=== PATIENT | male | born 1950 | race Caucasian/White ===

== ENCOUNTER 2016-05-31 06:05 | Day surgery (SDC) | payer BC ==
[~2016-05-31] VITALS: Ht 185.4 cm; Wt 82.4 kg
[~2016-05-31 06:05] MED LIST: ASPI-557 PO; ENAL1TAB PO
[2016-05-31 06:07] VITALS: BP 128/76; PULSE 74; RESP 16; TEMP 97.7; O2SAT 94
--- OUTSIDE RECORDS SUMMARY | 2016-05-31 06:09 | XMS REPORT | Continuity of Care Document ---
Author Author [facility] Organization [facility] Address Unknown Phone Unavailable Allergies Medications Problems Procedures Results Encounters ACCT No. Visit Date/Time Discharge Status Pt. Type Provider Facility Loc./Unit Complaint [id number] 04/26/2013 18:06:00 04/26/2013 23 :59:59 CLS Outpatient
--- OUTSIDE RECORDS SUMMARY | 2016-05-31 06:09 | XMS REPORT | Continuity of Care Document ---
Author Author Bridget Tam RN Ambulatory Address [address] [place] [id number] Phone Unavailable Payers Payer name Insurance type Covered green party ID Authorization(s) Unknown Problems Condition Effective Dates (start - stop) Clinical Status Lumbago - *Acute Family History Family Member Diagnosis Age At Onset Status Unknown Social History Social History Element Description Quantity Unknown Allergies, Adverse Reactions, Alerts Substance Reaction Severity Status Unknown Medications Medication Instructions Dosage Effective Dates (start - stop) Status Flexeril 5 mg tablet take 1 tablet (5MG) by oral route 3 times every day 5 MG - No Longer Active Girard 5 mg-325 mg tablet take 1 tablet by oral route every 6 hours as needed for pain 0 - No Longer Active Mobic 7.5 mg tablet take 1 tablet (7.5MG) by oral route every day 7.5 MG - No Longer Active Immunizations Vaccine Date Status Comments Unknown Results Test Name Date and Time Measure Units Reference Range Abnormal Flag Comments Unknown Vital Signs Date / Time: Height Weight Pulse Rate Blood Pressure Temperature /18:09:00 73.00 in 86 /min 135/84 mm[Hg] 98.0 F Procedures Procedure Date KETOROLAC TROMETHAMINE INJ THER/PROPH/DIAG INJ, SC/IM Encounters Encounter Location Date Patient Visit [facility] Care Advance Directives Directive Effective Date Unknown
[2016-05-31 06:36] VITALS: Ht 185.4 cm; Wt 82.4 kg
[2016-05-31] MEDS ORDERED: PROPOFOL 500mg 50 ML IV ONE ×2 (06:49→07:48)
[2016-05-31] MEDS ORDERED: LR 1,000 ML IV SCH (07:00)
[2016-05-31] MEDS ORDERED: LIDOCAINE 1% (10mg/ml) 2ml SDV INJ ONE (07:00)
--- NOTE | 2016-05-31 07:10 | ANESPREOP ---
Anesthesia Record Date and Time DATE: 05/31/16 TIME: 07:01 Pre-Op Diagnosis personal history colon polyp Proposed Surgical Procedure COLONOSCOPY NPO since: 2199 Allergies: Coded Allergies: No Known Drug Allergies (Verified Allergy, Unknown, 05/31/16) Ht/Wt/BMI Height: 6 ' 1.00 " Weight: 82.400 kg BMI: 24.0 kg/m2 Vital Signs Date Time Temp Pulse Resp B/P Pulse Ox O2 Delivery O2 Flow Rate FiO2 05/31/16 06:07 97.7 74 16 128/76 94 Room Air Medications Inpatient Medications Current Medications Medications (Trade) Dose Ordered Sig/Giuliano Start Time Stop Time Status Last Admin Dose Admin Lactated Ringer's (Lactated Ringers) 1,000 ml @ 50 mls/hr Q20H 05/31/16 07:00 05/31/16 06:50 50 MLS/HR Aspirin (Aspir 81) 81 Mg Tablet.dr, 1 TAB PO DAILY, (Reported) Last Taken: on 05/30/16 0700 Enalapril/Hydrochlorothiazide (Enalapril-Hctz 10-25 Mg Tablet) 1 Tab Tablet, 1 TAB PO DAILY, (Reported) Last Taken: on 05/30/16 0800 Currently on Beta Razia: No Medical/Surgical History Anesthesia PMH: Reports: *Hypertension, COPD, Cancer (MALIGNANT MELANOMA FACE, EAR), Hyperlipidemia, Denies: *Angina, *Diabetes, *Dyspnea, *[place], Anesthesia Reactions (NO AIRWAY ISSUES), Arthritis, Asthma, CHF, CVA/Stroke/TIA, Clotting Problems, Deep Vein Thrombosis, Glaucoma, Hepatitis, Hiatal Hernia, Malignant Hyperthermia, Pneumonia, Reflux, Renal Disease, Seizures, Sleep Apnea, Thyroid Disease, Tuberculosis Smoking Status: Current every day smoker Has pt. smoked today?: No # of Packs per Day: 1 # of Years: 40 Use Chewing Tobacco?: No Second Hand Exposure: No Substance Use Type: does not use Alcohol Intake: none Past Surgical History Orthopedic Surgeries: Yes - L1-2 DISCECTOMY 2000, R ARM PINNING Abdominal Surgeries: No Genitourinary Surgeries: No Cardiac Surgeries: No Endocrine Surgeries: No Reproductive Surgeries: No Neurological Surgeries: No Ear Surgeries: No Nose Surgeries: No Throat Surgeries: Yes - TONSILLECTOMY Other Surgeries: Yes - MOH'S PROCEDURE,COLONOSCOPY,WISDOM TEETH Anesthesia Adverse Reactions: FOUND none Family Hx of Anesthesia Advers: none Hx of Motion Sickness: No Pertinent Findings EKG Rhythm: Sinus Rhythm Physical Exam Respiratory: Wheezing Cardiovascular: FOUND Regular rate, rhythm, FOUND No murmur Airway Assessment Mallampati Score: II TMD: 3 Fingerbreadths Neck Extension: Good Teeth: Chipped Teeth/Crowns Overall Assessment: No Airway Concerns ASA: 3 Plan Anesthesia Plan: TIVA Discussion Discussed risks/options/alternatives of anesthesia and questions answered. Patient consents. Nursing pain assessment noted. Attestation Statement Prior to the delivery of any anesthetic medication, I examined the patient, developed the plan, obtained the patient's consent and discussed the risk and benefits of the procedure with the patient/guardian. DALTON QUINTERO CRNA May 31, 2016 07:03
[2016-05-31] MEDS ORDERED: PROPOFOL 200mg 20 ML IV ONE ×2 (08:36→08:54)
[2016-05-31 09:07] VITALS: BP 119/63; PULSE 68; RESP 18; TEMP 97.6; O2SAT 98
--- NOTE | 2016-05-31 09:12 | ANESPO ---
Post-Op Note Date 05/31/16 Time: 09:13 Status Pt Participated in Evaluation: Pt participated in person Vital Signs Date Time Temp Pulse Resp B/P Pulse Ox O2 Delivery O2 Flow Rate FiO2 05/31/16 09:11 Room Air 05/31/16 06:07 97.7 74 16 128/76 94 Respiratory Function: Airway patent, Regular respirations Cardiovascular Function: Regular pulse Mental Status: Alert/oriented Pain Level Intensity: 0 Unable to Assess Pain Due To: Pt Sleeping Hydration: Taking po fluids Complications during Recovery None apparent Follow-Up Instructions Instructions Per Surgeon DALTON QUINTERO CRNA May 31, 2016 09:12
[2016-05-31 09:20] VITALS: BP 95/59; PULSE 60; RESP 24; O2SAT 98
[2016-05-31 09:35] VITALS: BP 116/69; PULSE 54; RESP 22; O2SAT 91
--- NOTE | 2016-05-31 09:42 | GSPOSTPROC ---
Immediate Operative Note DATE: 05/31/16 TIME: 09:41 Postop Diagnosis: multiple colon polyps Surgical Procedure: C-scope w/Polypectomy Surgeon: Tosin ASA: 3 MARCUS MCDONALD MD May 31, 2016 09:42
--- NOTE | 2016-06-01 11:22 | OPNOTEF ---
DATE OF OPERATION 05/31/2016 SURGEON Checo Leahy MD PREOPERATIVE DIAGNOSIS Personal history of adenomatous colon polyps. POSTOPERATIVE DIAGNOSES 1. 1-cm sessile polyp of the ascending colon. 2. 0.5-cm sessile polyps of the transverse colon x4. 3. 0.7-cm sessile polyp of the descending colon. 4. 0.5-cm sessile polyp of the sigmoid colon at 35 cm. 5. 0.7-cm sessile polyp of the sigmoid colon at 30 cm. 6. 0.5-cm sessile polyp of the distal rectum. PROCEDURE Colonoscopy with hot snare polypectomy x3 and hot biopsy forceps polypectomy x6. ANESTHESIA TIVA. ASA CLASS 3 INDICATIONS The patient is a 65-year-old male who had previously had adenomatous colon polyps removed on prior endoscopies with a total of eight tubular adenomas. He had one advanced adenoma that was 1.5 cm in diameter on his prior procedure that was done on 05/31/2013. A repeat was recommended to him. FINDINGS There were numerous sessile polyps throughout the colon with dimensions as above. All of the polyps were able to be removed. No other significant abnormalities were seen. DESCRIPTION OF PROCEDURE After informed consent was obtained, the patient was taken to the endoscopy suite and placed in the left lateral decubitus position. IV anesthesia was administered by the anesthesia team. A digital rectal exam was performed and was normal. The patient had received a MiraLAX/Dulcolax bowel prep the day prior. Olympus video colonoscope with an amplify device was inserted. A small polyp was noted in the distal rectum, and this was grasped with hot biopsy forceps. The mucosa was tented prior to application of cautery. Once the base of the polyp was destroyed, the polyp was removed and was sent to Pathology. The scope was then retroflexed to examine the distal rectum. It was returned to a neutral position and was advanced to the level of the cecum without difficulty. The bowel prep was very good with minimal residual liquid contents of the colon that were able to be removed via the colonoscope. The cecum was identified by the appendiceal orifice and ileocecal valve. During scope withdrawal, a sessile polyp was noted on a fold of the ascending colon. This was encircled with a rotating hot polypectomy snare. The snare was tightened around the base of the polyp and the mucosa was tented. Bursts of cautery were used to resect the polyp. The polyp itself was then retrieved by grasping the specimen with hot biopsy forceps and withdrawing the specimen through the colonoscope. The site was inspected and was found to be hemostatic. There were possible edges of the polyp that were still at the polypectomy sites, so these were grasped with the hot biopsy forceps and cautery was applied to the surrounding tissue. These extra fragments grasped with a biopsy forceps were also sent to Pathology. The scope was withdrawn to the distal transverse colon where multiple small polyps were noted within a short region of the colon. These four polyps were removed with a hot biopsy forceps polypectomy technique. The scope was withdrawn to the descending colon and a slightly larger sessile polyp was encountered. It was encircled with the polypectomy snare and was removed with a hot snare polypectomy technique. It was also grasped with biopsy forceps and retrieved via the colonoscope. The scope was withdrawn to the sigmoid colon at 35 cm. A small polyp was encountered that was removed with hot biopsy forceps polypectomy technique. There was another polyp at 30 cm that was slightly broader based and so snare polypectomy technique was utilized. There was difficulty in getting the snare around the base of the polyp, but it was able to be encircled and the mucosa was tented prior to division with cautery. The scope was further withdrawn and no additional abnormalities were noted. All nine polyps were retrieved and were sent to Pathology. Upon reaching the rectum, the carbon dioxide insufflation was evacuated and the scope was removed. RECOMMENDATIONS 1. Await pathology results to determine the necessary time interval for repeat colonoscopy. 2. If he ends up with two more tubular adenomas, he would likely qualify for genetic testing based on a personal history of 10 adenomatous colon polyps. [facility]
== END 2016-05-31 10:00 | disposition home or self-care (01) ==
LOC: NSC 06:05
PROVIDERS: ATTEND Surgery
DX: Z12.11 Encounter for screening for malignant neoplasm of colon (principal); D12.2 Benign neoplasm of ascending colon; D12.3 Benign neoplasm of transverse colon; D12.4 Benign neoplasm of descending colon; D12.5 Benign neoplasm of sigmoid colon; K62.1 Rectal polyp; Z86.010 Personal history of colon polyps; K57.30 Diverticulosis of large intestine without perforation or abscess without bleeding; I10 Essential (primary) hypertension; E78.5 Hyperlipidemia, unspecified; Z79.899 Other long term (current) drug therapy; F17.210 Nicotine dependence, cigarettes, uncomplicated
CPT/HCPCS: 45384; 45385; J2704; J7120